=== PATIENT | female | born 1965 | race African-American/Black ===

== ENCOUNTER 2016-10-04 07:40 | Emergency (ER) | payer OTHER ==
[~2016-10-04] VITALS: Ht 160 cm; Wt 74.0 kg
[~2016-10-04 07:40] MED LIST: AMLO10TA80 PO; ASPI-867 PO; Albuterol; OMEP20CA10 PO; PROVENTIL
[2016-10-04 08:52] VITALS: BP 136/90
== END 2016-10-04 09:06 | disposition home or self-care (01) ==
LOC: ER 07:50
DX: J44.9 Chronic obstructive pulmonary disease, unspecified (principal); H66.93 Otitis media, unspecified, bilateral; J02.9 Acute pharyngitis, unspecified; J32.9 Chronic sinusitis, unspecified; F17.200 Nicotine dependence, unspecified, uncomplicated; Z79.82 Long term (current) use of aspirin
CPT/HCPCS: 81025; 99283; Z7610